=== PATIENT | male | born 1965 | race Caucasian/White ===

== ENCOUNTER → 2025-03-18 23:59 | Outpatient (BNV) | payer OTHER, SELFPAY | PROVIDERS: PCP Internal Medicine; Visit Provider Internal Medicine Cardiovascular Disease | DX: I21.02 ST elevation (STEMI) myocardial infarction involving left anterior descending coronary artery (principal) | CPT/HCPCS: 92921; 92941; 92973; 93458; 99152 ==

== ENCOUNTER 2025-04-05 09:28 | Outpatient (AMB) | payer OTHER, SELFPAY ==
--- NOTE | 2025-04-05 09:42 | MHC.OFFVIS ---
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 Accompanied by: Self / Same As Patient Allergies No Known Allergies Allergy (Verified 04/05/25 09:44) Medication List - Last Reconciled 04/05/25 by Hector Gallegos MD albuterol sulfate 90 mcg/actuation (Ventolin HFA) 2 puffs inhalation Q6H PRN amlodipine 5 mg PO DAILY aspirin (Adult Low Dose Aspirin) 81 mg PO DAILY atorvastatin (Lipitor) 80 mg PO DAILY bupropion HCl XL (Wellbutrin XL) 150 mg PO QAM carvedilol 6.25 mg PO BID nicotine 1 patch transdermal DAILY sertraline 50 mg PO DAILY ticagrelor 90 mg PO BID valsartan 40 mg PO BID HPI Comments Details: Pleasant 59 year gentleman who is here for follow-up. He was seen at [facility] when he presented with anterior wall RI. He had significant thrombus burden and had primary PCI done to the LAD with overall good outcome. His EF was 35-40% at discharge and was started on guideline directed medical therapy. He is on aspirin and Brilinta and has been taking them regularly. He has been active and works as a contractor and is denying any exertional issues currently. He is going to cardiac rehabilitation and also doing exercise on his own. Blood pressure is well controlled. He has no complaints on follow-up. [facility] History (Updated 04/05/25 @ 09:53 by Brenda Roberts CMA) S/P cardiac cath Family History (Updated 04/05/25 @ 09:53 by Brenda Roberts CMA) Mother No problems noted. Father No problems noted. Social History (Updated 04/05/25 @ 09:53 by Brenda Roberts CMA) Alcohol intake: never Patient Tobacco Use Status: Never used Tobacco Review of Systems Const Denies chills, Denies fatigue, Denies fever(s), Denies frequent falls, Denies weakness, Denies weight gain and Denies weight loss ENT Denies dizziness Card Denies chest pain, Denies leg edema, Denies lightheadedness, Denies palpitations, Denies dyspnea and Denies dyspnea on exertion Resp Denies cough, Denies dyspnea and Denies dyspnea on exertion GI Denies hematochezia Musc Denies abnormal gait, Denies muscle weakness, Denies numbness, Denies radiating pain into limb and Denies tingling Neuro Denies abnormal gait, Denies dizziness, Denies frequent falls, Denies numbness, Denies tingling and Denies weakness Endo Denies fatigue and Denies palpitations Physical Exam Vital Signs: Last Vital Signs Pulse 74 04/05/25 09:43 BP 130/74 04/05/25 09:43 BMI result Body Mass Index 33.2 GENERAL APPEARANCE: in no acute distress, pleasant. NECK: no carotid bruit, no jugular venous distention. SKIN: no suspicious lesions, warm and dry. HEART: no murmurs, regular rate and rhythm. LUNGS: clear to auscultation bilaterally. ABDOMEN: soft, nontender. EXTREMITIES: no edema. PERIPHERAL PULSES: equal. NEUROLOGIC: No gross deficits, AAO X 3 Office Procedures EKG Details: Sinus rhythm 74 beats per minute, normal axis, precordial T-wave inversions-anterolateral ischemia, normal T-wave progression. QTC 410 milliseconds. [id number], Complete Assessment & Plan Assessment & Plan (1) Anterior wall myocardial infarction: Code(s): I21.09 - ST elevation (STEMI) myocardial infarction involving other coronary artery of anterior wall Category: Medical Plan [age] year gentleman with a anterior wall RI and [id number] LV dysfunction. He had primary PCI done with good result and is currently on aspirin and Brilinta. I have explained to him that he needs to take both medications for the next year. After 1 year Brilinta can be stopped. He is on high-intensity statin therapy. Blood pressure is well controlled. He has mild to moderate LV dysfunction on echocardiography after the primary PCI. We will repeat the echocardiogram in early May to reassess the ejection fraction. In the meantime we will continue same medications. He is doing cardiac rehabilitation at [facility]. He is saying that he does more exercise on his own and is asking about utility of going to cardiac rehabilitation. I have explained to him that there are significant benefits with cardiac rehabilitation and he will have further discussions as he goes back to rehab. Thank you for allowing me to participate in the care of your patient. Please feel free to contact me if you have any questions. Orders: Orders [facility] Today I21.09 - ST elevation (STEMI) myocardial infarction involving other coronary artery of anterior wall Coding Level of Care Code Est Pt Level 4 (48416) Diagnoses Anterior wall myocardial infarction I21.09 CPT Codes EKG - CPT: 42834-[id number], Complete ([id number])
[2025-04-05 09:43] VITALS: BP 130/74; PULSE 74; BMI 33.2
== END 2025-04-05 10:20 | disposition home or self-care (01) ==
LOC: HO.HCS 09:29
PROVIDERS: PCP Internal Medicine; Visit Provider Internal Medicine Cardiovascular Disease
DX: I21.09 ST elevation (STEMI) myocardial infarction involving other coronary artery of anterior wall (principal)
CPT/HCPCS: 93010; 99214

== ENCOUNTER → 2025-04-05 09:28 | Outpatient (BNVA) | payer OTHER, SELFPAY | PROVIDERS: PCP Internal Medicine; Visit Provider Internal Medicine Cardiovascular Disease | DX: I21.09 ST elevation (STEMI) myocardial infarction involving other coronary artery of anterior wall (principal) | CPT/HCPCS: 93005 ==